=== PATIENT | female | born 1950 | race Caucasian/White ===

== ENCOUNTER 2020-09-18 14:22 | Emergency (ER) | payer MEDICARE ==
[2020-09-18 14:55] LABS: APPEARANCE,URINE CLOUDY (CLEAR); BILIRUBIN,URINE SMALL (NEGATIVE); COLOR,URINE ORANGE (YELLOW); GLUCOSE, URINE (UA) 100 mg/dL (NEGATIVE); KETONES,URINE 5 mg/dL (NEGATIVE); LEUKOCYTE ESTERASE ,URINE SMALL (NEGATIVE); NITRATE,URINE POSITIVE (NEGATIVE); OCCULT BLOOD,URINE LARGE (NEGATIVE); PROTEIN,URINE >=300 mg/dL (NEGATIVE)
[2020-09-18 15:19] LABS: BACTERIA,URINE Few /HPF (None Seen); MUCUS,URINE Rare LPF (None Seen); RBC,URINE 26-50 /HPF (0-1); SQUAMOUS EPITHELIAL CELL,UR Few /HPF (0-2); WBC,URINE 26-50 /HPF (0-1)
[2020-09-18] MEDS ORDERED: KETOROLAC TROMETHAMINE 30MG/ML ONE (15:32)
[2020-09-18] MEDS ORDERED: CEFTRIAXONE SODIUM 1 GM ONE (15:32)
[2020-09-18] MEDS ORDERED: PHENAZOPYRIDINE HCL 200 MG TABLET ONE (15:33)
[2020-09-18] MEDS ORDERED: ACETAMINOPHEN 325 MG TAB ONE (15:33)
[2020-09-18] MEDS ORDERED: LIDOCAINE HCL-MPF 1% 2ML VIAL ONE (15:34)
[2020-09-18 15:48] LABS: BASOPHILS % (AUTO) 0.7 % (0.0-5.0); EOSINOPHILS % (AUTO) 2.4 % (0.0-8.0); HEMATOCRIT 43.1 % (36-48); MEAN CORPUSCULAR HEMOGLOBIN 31.8 pg (27.0-33.0); MEAN CORPUSCULAR HGB CONC 34.8 g/dL (32.0-36.0); MEAN CORPUSCULAR VOLUME 91.5 fL (79-99); MONOCYTES % (AUTO) 8.7 % (3.0-13.0); NEUTROPHILS % (AUTO) 54.9 % (40.0-77.0); PLATELET COUNT (AUTO) 404 K/uL (130-400); RED BLOOD CELL COUNT(AUTO) 4.71 MIL/uL (4.00-5.50); RED CELL DISTRIBUTION WIDTH 13.3 % (11.0-15.5); WHITE BLOOD COUNT (AUTO) 10.6 K/uL (4.8-10.8)
[2020-09-18 16:02] LABS: CREATININE 1.1 mg/dL (0.5-1.5); POTASSIUM 3.8 mmol/L (3.5-5.1)
[2020-09-18 16:07] LABS: ALBUMIN 4.2 g/dL (3.5-5.0); BILIRUBIN,TOTAL 0.5 mg/dL (0.2-1.0); TOTAL PROTEIN, SERUM 8.1 g/dL (6.0-8.3)
== END 2020-09-18 17:11 | disposition home or self-care (01) ==
LOC: EDH 14:22
DX: N39.0 Urinary tract infection, site not specified (principal); I10 Essential (primary) hypertension; Z88.8 Allergy status to other drugs, medicaments and biological substances; Z72.0 Tobacco use; Z98.51 Tubal ligation status
CPT/HCPCS: 36415; 80053; 81001; 85025; 87088; 96372 ×2; 99284; J0696; J1885; J3490

== ENCOUNTER 2021-11-13 20:48 | Emergency (ER) | payer MEDICARE ==
[~2021-11-13] VITALS: Ht 152.4 cm; Wt 108.9 kg
[~2021-11-13 20:48] MED LIST: ATOR10 PO; DULO30CA52 PO; FAMO20TA8 PO; LEVO25CA4 PO; LOSA1TAB37 PO; NITR0.4T50 SL
[2021-11-13] MEDS ORDERED: 0.9%NACL 1000ML 1,000 ML IV ONE (21:30)
[2021-11-13 21:59] LABS: BASOPHILS % (AUTO) 0.5 % (0.0-5.0); EOSINOPHILS % (AUTO) 0.5 % (0.0-8.0); HEMATOCRIT 41.7 % (36-48); LYMPHOCYTES % (AUTO) 8.5 % (21.0-51.0); MEAN CORPUSCULAR HEMOGLOBIN 30.4 pg (27.0-33.0); MEAN CORPUSCULAR HGB CONC 33.6 g/dL (32.0-36.0); MEAN CORPUSCULAR VOLUME 90.5 fL (79-99); MONOCYTES % (AUTO) 6.7 % (3.0-13.0); NEUTROPHILS % (AUTO) 83.5 % (40.0-77.0); PLATELET COUNT (AUTO) 317 K/uL (130-400); RED BLOOD CELL COUNT(AUTO) 4.61 MIL/uL (4.00-5.50); RED CELL DISTRIBUTION WIDTH 13.4 % (11.0-15.5); WHITE BLOOD COUNT (AUTO) 10.2 K/uL (4.8-10.8)
[2021-11-13 22:19] LABS: CREATININE 0.8 mg/dL (0.5-1.5); POTASSIUM 3.7 mmol/L (3.5-5.1)
[2021-11-13 22:23] LABS: ALBUMIN 3.5 g/dL (3.5-5.0); BILIRUBIN,TOTAL 0.6 mg/dL (0.2-1.0); TOTAL PROTEIN, SERUM 7.2 g/dL (6.0-8.3)
[2021-11-13] MEDS ORDERED: ACETAMINOPHEN 500 MG TABLET ONE (23:00)
[2021-11-13] MEDS ORDERED: ACETAMINOPHEN 500 MG TABLET PO ONE (23:00)
[2021-11-13] MEDS ORDERED: DOXY100T2 PO (23:38)
[2021-11-13] MEDS ORDERED: BENZ-39 PO (23:38)
[2021-11-14] VITALS: BP 131/73
[2021-11-14] MEDS ORDERED: DOXYCYCLINE HYCLATE 100 MG TABLET PO SCH
[2021-11-14] MEDS ORDERED: BENZONATATE 100 MG CAPSULE PO ONE
== END 2021-11-14 00:37 | disposition home or self-care (01) ==
LOC: EDH 20:48
DX: J20.9 Acute bronchitis, unspecified (principal); E86.9 Volume depletion, unspecified; Z20.822 Contact with and (suspected) exposure to COVID-19; E03.9 Hypothyroidism, unspecified; E78.00 Pure hypercholesterolemia, unspecified; I10 Essential (primary) hypertension; M19.90 Unspecified osteoarthritis, unspecified site; Z79.899 Other long term (current) drug therapy; Z88.5 Allergy status to narcotic agent; Z90.49 Acquired absence of other specified parts of digestive tract
CPT/HCPCS: 36415; 71045; 80053; 84484; 85025; 87635; 87804 ×2; 93005; 96360; 99285; C9803; J7030

== ENCOUNTER 2022-11-21 08:51 | Emergency (ER) | payer OTHER, MEDICARE ==
[~2022-11-21] VITALS: Ht 152.4 cm; Wt 90.7 kg
[~2022-11-21 08:51] MED LIST changes: +BENZ-39 PO; +DOXY100T2 PO
[2022-11-21 08:55] VITALS: BP 125/81
[2022-11-21 09:26] LABS: BASOPHILS % (AUTO) 0.9 % (0.0-5.0); EOSINOPHILS % (AUTO) 2.8 % (0.0-8.0); HEMATOCRIT 42.7 % (36-48); LYMPHOCYTES % (AUTO) 31.3 % (21.0-51.0); MEAN CORPUSCULAR HEMOGLOBIN 31.6 pg (27.0-33.0); MEAN CORPUSCULAR HGB CONC 33.7 g/dL (32.0-36.0); MEAN CORPUSCULAR VOLUME 93.6 fL (79-99); MONOCYTES % (AUTO) 7.1 % (3.0-13.0); NEUTROPHILS % (AUTO) 57.7 % (40.0-77.0); PLATELET COUNT (AUTO) 351 K/uL (130-400); RED BLOOD CELL COUNT(AUTO) 4.56 MIL/uL (4.00-5.50); RED CELL DISTRIBUTION WIDTH 13.9 % (11.0-15.5); WHITE BLOOD COUNT (AUTO) 8.2 K/uL (4.8-10.8)
[2022-11-21 09:51] LABS: ALBUMIN 3.6 g/dL (3.5-5.0); CREATININE 0.7 mg/dL (0.5-1.5); POTASSIUM 3.5 mmol/L (3.5-5.1); TOTAL PROTEIN, SERUM 7.3 g/dL (6.0-8.3)
[2022-11-21 11:00] LABS: APPEARANCE,URINE CLOUDY (CLEAR); BILIRUBIN,URINE MODERATE mg/dL (NEGATIVE); COLOR,URINE BROWN (YELLOW); GLUCOSE, URINE (UA) NEGATIVE (NEGATIVE); KETONES,URINE 15 mg/dL (NEGATIVE); LEUKOCYTE ESTERASE ,URINE MODERATE Leu/uL (NEGATIVE); NITRATE,URINE POSITIVE (NEGATIVE); OCCULT BLOOD,URINE LARGE (NEGATIVE); PH,URINE 6.5 (5.0-8.0); PROTEIN,URINE >=300 mg/dL (NEGATIVE)
[2022-11-21 11:33] LABS: BACTERIA,URINE Many /HPF (None Seen); RBC,URINE TNTC /HPF (0-1)
[2022-11-21] MEDS ORDERED: CEPH500C2 PO (13:23)
== END 2022-11-21 15:01 | disposition home or self-care (01) ==
LOC: EDH 08:51
DX: N39.0 Urinary tract infection, site not specified (principal); I10 Essential (primary) hypertension; E78.00 Pure hypercholesterolemia, unspecified; Z88.5 Allergy status to narcotic agent; Z88.8 Allergy status to other drugs, medicaments and biological substances; Z79.899 Other long term (current) drug therapy; Z90.49 Acquired absence of other specified parts of digestive tract
CPT/HCPCS: 36415; 74176; 80053; 81001; 85025; 87088

== ENCOUNTER 2023-03-26 08:42 | Day surgery (SDC) | payer OTHER, MEDICARE ==
[2023-03-23 11:42] LABS: BASOPHILS # (AUTO) 0.09 K/uL (0.00-0.20); BASOPHILS % (AUTO) 0.9 % (0.0-5.0); EOSINOPHILS # (AUTO) 0.19 K/uL (0.00-0.70); EOSINOPHILS % (AUTO) 1.9 % (0.0-8.0); HEMATOCRIT 45.2 % (36-48); IMMATURE GRANULOCYTE ABSOLUTE 0.04 K/uL (0-1); LYMPHOCYTES # (AUTO) 3.3 K/uL (1.0-4.8); LYMPHOCYTES % (AUTO) 33.4 % (21.0-51.0); MEAN CORPUSCULAR HEMOGLOBIN 31.6 pg (27.0-33.0); MEAN CORPUSCULAR HGB CONC 33.2 g/dL (32.0-36.0); MEAN CORPUSCULAR VOLUME 95.4 fL (79-99); NEUTROPHILS # (AUTO) 5.3 K/uL (1.8-7.7); NEUTROPHILS % (AUTO) 53.4 % (40.0-77.0); PLATELET COUNT (AUTO) 375 K/uL (130-400); RED BLOOD CELL COUNT(AUTO) 4.74 MIL/uL (4.00-5.50); RED CELL DISTRIBUTION WIDTH 13.7 % (11.0-15.5); WHITE BLOOD COUNT (AUTO) 9.8 K/uL (4.8-10.8)
[2023-03-23 11:51] LABS: CREATININE 0.8 mg/dL (0.5-1.5); POTASSIUM 3.7 mmol/L (3.5-5.1)
[2023-03-23 11:58] VITALS: BP 123/77; PULSE 56; RESP 18
[2023-03-23 12:22] LABS: INR 1.03 (0.85-1.15); PROTHROMBIN TIME 11.9 SEC (9.6-11.6)
[2023-03-23 12:23] LABS: PARTIAL THROMBOPLASTIN TIME 28.6 SEC (26.3-35.5)
[~2023-03-26] VITALS: Ht 152.4 cm; Wt 98.9 kg
[2023-03-26] VITALS (18 sets, daily range): BP systolic 115–147; BP diastolic 53–77; PULSE 52–91; RESP 13–18
[~2023-03-26 08:42] MED LIST changes: -BENZ-39 PO; -DOXY100T2 PO; -DULO30CA52 PO; -FAMO20TA8 PO; -NITR0.4T50 SL
[2023-03-26] MEDS ORDERED: LACTATED RINGERS 1000ML 1,000 ML IV ONE (08:56)
[2023-03-26] MEDS ORDERED: CEFTRIAXONE 1G VIAL ONE (08:56)
[2023-03-26] MEDS ORDERED: PROPOFOL 10 MG/ML 20ML VIAL IV ONE (10:23)
[2023-03-26] MEDS ORDERED: FENTANYL CITRATE PF 50 MCG/1 ML 2ML VIAL ONE ×2 (10:23→14:02)
[2023-03-26] MEDS ORDERED: LIDOCAINE PF 100MG/5ML (2%) SYRINGE 5ML ONE (10:24)
[2023-03-26] MEDS ORDERED: ROCURONIUM 10MG/1ML SYR 10 MG/ML ML ONE (10:24)
[2023-03-26] MEDS ORDERED: CEFAZOLIN SODIUM 2 GM VIAL IVPB ONE (13:02)
[2023-03-26] MEDS ORDERED: DEXAMETHASONE SOD PHOSPHATE 10MG/ML 1ML VIAL ONE (13:04)
[2023-03-26] MEDS ORDERED: ONDANSETRON 4MG INJ ONE (13:04)
[2023-03-26] MEDS ORDERED: PHENYLEPHRINE HCL 10 MG/ML 1ML VIAL IV ONE (13:09)
[2023-03-26] MEDS ORDERED: NEOSTIGMINE 5MG/5ML SYR IV ONE (13:25)
[2023-03-26] MEDS ORDERED: GLYCOPYRROLATE 1 MG/5 ML SYRINGE ONE (13:25)
[2023-03-26] MEDS ORDERED: IPRATROPIUM/ALBUTEROL SULFATE 3 ML SOLUTION IH ONE ×2 (14:30→14:31)
[2023-03-26] MEDS ORDERED: MEPERIDINE-PF 25 MG/ML SYG ONE (14:39)
[2023-03-26] MEDS ORDERED: PHENAZOPYRIDINE HCL 200 MG TABLET ONE (14:58)
[2023-03-26] MEDS ORDERED: CITRIC ACID/SODIUM CITRATE 30 ML UDCUP ONE (15:13)
== END 2023-03-26 16:16 | disposition home or self-care (01) ==
LOC: DAH 08:42
PROVIDERS: ATTEND Urology
DX: R31.0 Gross hematuria (principal); C67.2 Malignant neoplasm of lateral wall of bladder; N30.21 Other chronic cystitis with hematuria; I10 Essential (primary) hypertension; F17.200 Nicotine dependence, unspecified, uncomplicated; E03.9 Hypothyroidism, unspecified; E66.9 Obesity, unspecified; M19.90 Unspecified osteoarthritis, unspecified site; Z88.8 Allergy status to other drugs, medicaments and biological substances; Z88.6 Allergy status to analgesic agent; Z98.51 Tubal ligation status; Z98.890 Other specified postprocedural states; Z90.49 Acquired absence of other specified parts of digestive tract
CPT/HCPCS: 80048; 85025; 85610; 85730; 36415; 93005 ×2; 52240; 88307; 94640; A6260; A4354; J7120; J3010 ×2; J3490; J1100; J2710; J2001; J0696; J2704; J2405; J2371; J0690; A4358; A4215; A4223; A4222; A4221; A4663; A4510; A5113; A4600; J2175

== ENCOUNTER 2023-04-20 11:20 | Day surgery (SDC) | payer OTHER, MEDICARE ==
[2023-04-18 13:37] LABS: BASOPHILS # (AUTO) 0.06 K/uL (0.00-0.20); BASOPHILS % (AUTO) 0.6 % (0.0-5.0); EOSINOPHILS # (AUTO) 0.18 K/uL (0.00-0.70); EOSINOPHILS % (AUTO) 1.8 % (0.0-8.0); HEMATOCRIT 43.9 % (36-48); IMMATURE GRANULOCYTE ABSOLUTE 0.03 K/uL (0-1); LYMPHOCYTES # (AUTO) 3.4 K/uL (1.0-4.8); LYMPHOCYTES % (AUTO) 34.3 % (21.0-51.0); MEAN CORPUSCULAR HEMOGLOBIN 31.6 pg (27.0-33.0); MEAN CORPUSCULAR HGB CONC 33.7 g/dL (32.0-36.0); MEAN CORPUSCULAR VOLUME 93.6 fL (79-99); MONOCYTES # (AUTO) 1.1 K/uL (0.1-1.0); MONOCYTES % (AUTO) 10.9 % (3.0-13.0); NEUTROPHILS # (AUTO) 5.1 K/uL (1.8-7.7); NEUTROPHILS % (AUTO) 52.1 % (40.0-77.0); PLATELET COUNT (AUTO) 390 K/uL (130-400); RED BLOOD CELL COUNT(AUTO) 4.69 MIL/uL (4.00-5.50); RED CELL DISTRIBUTION WIDTH 13.4 % (11.0-15.5); WHITE BLOOD COUNT (AUTO) 9.8 K/uL (4.8-10.8)
[2023-04-18 14:09] VITALS: BP 162/83; PULSE 90; RESP 18
[2023-04-20] VITALS (16 sets, daily range): BP systolic 125–143; BP diastolic 61–78; PULSE 65–85; RESP 15–17
[~2023-04-20] VITALS: Ht 152.4 cm; Wt 96.7 kg
[~2023-04-20 11:20] MED LIST changes: +ACET-2079 PO; +MITOMYCIN 40 MG SYR.W..INJ INJ SCH
[2023-04-20] MEDS ORDERED: LACTATED RINGERS 1000ML 1,000 ML IV ONE (11:41)
[2023-04-20] MEDS ORDERED: CEFTRIAXONE 1G VIAL ONE (11:41)
[2023-04-20 12:07] LABS: CREATININE 0.9 mg/dL (0.5-1.5)
[2023-04-20] MEDS ORDERED: LIDOCAINE PF 100MG/5ML (2%) SYRINGE 5ML ONE (18:06)
[2023-04-20] MEDS ORDERED: MIDAZOLAM HCL 1 MG/ML 2ML VIAL ONE (18:06)
[2023-04-20] MEDS ORDERED: ROCURONIUM 10MG/1ML SYR 10 MG/ML ML ONE (18:07)
[2023-04-20] MEDS ORDERED: PROPOFOL 10 MG/ML 20ML VIAL IV ONE (18:07)
[2023-04-20] MEDS ORDERED: FENTANYL CITRATE PF 50 MCG/1 ML 2ML VIAL ONE (18:54)
[2023-04-20] MEDS ORDERED: ONDANSETRON 4MG INJ ONE (19:14)
[2023-04-20] MEDS ORDERED: SUGAMMADEX SODIUM 200 MG/2 ML VIAL IV ONE (19:17)
[2023-04-20] MEDS ORDERED: PHENAZOPYRIDINE HCL 200 MG TABLET ONE (20:33)
== END 2023-04-20 21:05 | disposition home or self-care (01) ==
LOC: DAH 11:20
PROVIDERS: ATTEND Urology
DX: N30.20 Other chronic cystitis without hematuria (principal); N30.00 Acute cystitis without hematuria; I10 Essential (primary) hypertension; E03.9 Hypothyroidism, unspecified; F17.200 Nicotine dependence, unspecified, uncomplicated; Z88.6 Allergy status to analgesic agent; Z88.8 Allergy status to other drugs, medicaments and biological substances; Z79.890 Hormone replacement therapy
CPT/HCPCS: 93005; 85025; 36415 ×2; 52234; 80048; 88305; 51720; A6260; J9280; A4663; J7120 ×2; A4354; J3010; J2001; J0696; J2250; J2704; J2405; A4358; A4215; A4223; A4222; A4221; A5113; A4600; A4510; J3490

== ENCOUNTER 2023-08-03 12:10 | Emergency (ER) | payer OTHER, MEDICARE ==
[~2023-08-03] VITALS: Ht 152.4 cm; Wt 113.4 kg
[~2023-08-03 12:10] MED LIST changes: -MITOMYCIN 40 MG SYR.W..INJ INJ SCH
[2023-08-03 12:43] VITALS: PULSE 105; RESP 18
[2023-08-03] MEDS: IPRATROPIUM/ALBUTEROL SULFATE 3 ML SOLUTION IH ONE ×3 (12:43→13:42)
[2023-08-03 12:51] LABS: BASOPHILS # (AUTO) 0.12 K/uL (0.00-0.20); BASOPHILS % (AUTO) 1.1 % (0.0-5.0); EOSINOPHILS # (AUTO) 0.42 K/uL (0.00-0.70); EOSINOPHILS % (AUTO) 3.7 % (0.0-8.0); HEMATOCRIT 44.9 % (36-48); IMMATURE GRANULOCYTE ABSOLUTE 0.05 K/uL (0-1); LYMPHOCYTES # (AUTO) 3.4 K/uL (1.0-4.8); LYMPHOCYTES % (AUTO) 30.1 % (21.0-51.0); MEAN CORPUSCULAR HEMOGLOBIN 31.5 pg (27.0-33.0); MEAN CORPUSCULAR HGB CONC 34.1 g/dL (32.0-36.0); MEAN CORPUSCULAR VOLUME 92.6 fL (79-99); MONOCYTES # (AUTO) 1.1 K/uL (0.1-1.0); MONOCYTES % (AUTO) 9.5 % (3.0-13.0); NEUTROPHILS # (AUTO) 6.2 K/uL (1.8-7.7); NEUTROPHILS % (AUTO) 55.2 % (40.0-77.0); PLATELET COUNT (AUTO) 415 K/uL (130-400); RED BLOOD CELL COUNT(AUTO) 4.85 MIL/uL (4.00-5.50); RED CELL DISTRIBUTION WIDTH 13.2 % (11.0-15.5); WHITE BLOOD COUNT (AUTO) 11.3 K/uL (4.8-10.8)
[2023-08-03 12:56] LABS: CREATININE 0.9 mg/dL (0.5-1.5); POTASSIUM 3.5 mmol/L (3.5-5.1)
[2023-08-03 13:01] LABS: ALBUMIN 3.8 g/dL (3.5-5.0); BILIRUBIN,TOTAL 0.6 mg/dL (0.2-1.0); TOTAL PROTEIN, SERUM 7.8 g/dL (6.0-8.3)
[2023-08-03 13:18] LABS: B-TYPE NATRIURETIC PEPTIDE 18 pg/mL (0-100)
[2023-08-03 13:30] VITALS: BP 144/82; O2SAT 95
[2023-08-03 13:34] LABS: SARS-CoV-2, RNA, NAAT NEGATIVE SARS CoV-2 (NEGATIVE)
[2023-08-03 13:37] LABS: INFLUENZA TYPE A Negative For Type A (NEGATIVE); INFLUENZA TYPE B Negative For Type B (NEGATIVE)
[2023-08-03 13:42] VITALS: PULSE 105; RESP 18
[2023-08-03] MEDS ORDERED: PRED20TA3 PO (15:58)
[2023-08-03] MEDS ORDERED: AZIT250T9 PO (15:58)
[2023-08-03] MEDS ORDERED: IPRA3AMP24 IH (15:58)
== END 2023-08-03 16:26 | disposition home or self-care (01) ==
LOC: EDH 12:10
DX: J44.1 Chronic obstructive pulmonary disease with (acute) exacerbation (principal); J20.9 Acute bronchitis, unspecified; I10 Essential (primary) hypertension; E78.00 Pure hypercholesterolemia, unspecified; E03.9 Hypothyroidism, unspecified; Z20.822 Contact with and (suspected) exposure to COVID-19; Z79.899 Other long term (current) drug therapy; Z98.890 Other specified postprocedural states; Z88.5 Allergy status to narcotic agent; Z88.8 Allergy status to other drugs, medicaments and biological substances
CPT/HCPCS: 36415; 71045; 80053; 83735; 83880; 84484; 85025; 87635; 87804; 93005; 94640

== ENCOUNTER 2025-01-28 11:01 | Emergency (ER) | payer OTHER, MEDICAID ==
[~2025-01-28] VITALS: Ht 152.4 cm; Wt 108.4 kg
[~2025-01-28 11:01] MED LIST changes: -ACET-2079 PO; +ALBU6.7H14 IH; +AZIT500T4 PO; +BENZ200C53 PO; +CEFD300C3 PO; -LEVO25CA4 PO; +LEVO25CA5 PO; +METH4TAB3 PO
--- NOTE | 2025-01-28 11:10 | ERN ---
ED Note History of Present Illness Stated Complaint: RT SHOULDER PAIN Chief Complaint: Shoulder Injury/Pain Time Seen by MD: 11:04 Dictation: PATIENT IS A 74-YEAR-OLD FEMALE COMING IN TODAY WITH COMPLAINTS OF NON TRAUMA RIGHT POSTERIOR SHOULDER PAIN, STATES IT IS HER MUSCLE BECAUSE THE BONES ON HER ONSET TWO DAYS PRIOR TO ARRIVAL. SHE STATES SHE WOKE UP WITH THE PAIN. DENIES CHEST PAIN NO BACK PAIN NO SOB NO ARM PAIN. SHE STATES SHE HAS NOT HAD ANY TRAUMA Allergies: Coded Allergies: fluoxetine HCl (Unverified Allergy, Unknown, 09/18/20) Home Meds Active Scripts Albuterol Sulfate (Proventil Hfa) 90 Mcg Hfa.aer.ad, 6.7 GM IH QID PRN for SHORTNESS OF BREATH/WHEEZING for 30 Days, #1 INHALER Prov:LIDIA CAVAZOS SWITCHBOARD OPERATOR ASSISTANT 08/31/23 Cefdinir (Cefdinir) 300 Mg Capsule, 300 MG PO BID for 5 Days, #10 CAP Prov:LIDIA CAVAZOS SWITCHBOARD OPERATOR ASSISTANT 08/31/23 Benzonatate (Benzonatate) 200 Mg Capsule, 200 MG PO Q8H PRN for COUGH, #30 CAP Prov:LIDIA CAVAZOS SWITCHBOARD OPERATOR ASSISTANT 08/31/23 Methylprednisolone (Medrol) 4 Mg Tab.ds.pk, 4 MG PO DAILY for 6 Days, #21 MG Prov:LIDIA CAVAZOS SWITCHBOARD OPERATOR ASSISTANT 08/31/23 Azithromycin (Azithromycin) 500 Mg Tablet, 500 MG PO DAILY for 3 Days, #3 TAB Prov:LIDIA CAVAZOS SWITCHBOARD OPERATOR ASSISTANT 08/31/23 Reported Medications Atorvastatin Calcium (LIPITOR) 20 Mg Tab, 20 MG PO DAILY, TAB 08/30/21 Levothyroxine Sodium (Levothyroxine) 25 Mcg Capsule, 25 MCG PO DAILY, CAP 08/30/21 Losartan/Hydrochlorothiazide (Losartan-Hctz 50-12.5 mg Tab) 50 Mg-12.5 Mg Tablet, 1 EACH PO DAILY, TAB 08/30/21 Past Medical History Past Medical History: Asthma, COPD, High Cholesterol, Hypertension, Hypothyroid Surgical History: Cholecystectomy, Other Surgical History Other: CATARAS, CARPAL TUNNEL Family History: Negative Social History: Negative, Other History: Not Applicable : 2 Para: 2 Aborts: 0 RN Note Reviewed/Agreed w/PFSH: Yes Review of System Dictation CONSTITUTIONAL: NEGATIVE EXCEPT FOR HPI HEAD/FACE: NEGATIVE EXCEPT FOR HPI EENT: NEGATIVE EXCEPT FOR HPI RESPIRATORY: NEGATIVE EXCEPT FOR HPI GASTROINTESTINAL/ABDOMINAL: NEGATIVE EXCEPT FOR HPI GENITOURINARY: NEGATIVE EXCEPT FOR HPI MUSCULOSKELETAL: NEGATIVE EXCEPT FOR HPI RIGHT POSTERIOR SHOULDER PAIN INTEGUMENTARY: NEGATIVE EXCEPT FOR HPI NEUROLOGICAL/PSYCH: NEGATIVE EXCEPT FOR HPI HEMATOLOGIC/LYMPHATIC: NEGATIVE EXCEPT FOR HPI ALL SYSTEMS NEGATIVE, EXCEPT NOTED ABOVE. 13 POINT REVIEW OF SYSTEMS ASSESSED AND ALL NEGATIVE EXCEPT FOR ABOVE. Initial Vital Sign VS Vital Signs Date Time Temp Pulse Resp B/P (MAP) Pulse Ox O2 Delivery O2 Flow Rate FiO2 01/28/25 11:07 98.8 88 18 153/81 97 Room Air 0 01/28/25 11:14 21 Physical Exam Dictation VITAL SIGNS REVIEWED GENERAL APPEARANCE: ALERT, ORIENTED X 3, SEVERE ACUTE DISTRESS, WELL DEVELOPED, NOURISHED. MORBID OBESITY HEAD AND FACE: NON-TRAUMATIC. EYES: PERRL, PINK CONJUNCTIVAS, EYELID NO TRAUMA, ANTERIOR CHAMBER WITH ARCUS SENILIS. EARS: PINNAS INTACT AND NO SIGNS OF TRAUMA OR ERYTHEMA EAR CANALS CLEAR AND NO DISCHARGE TM NO ERYTHEMA NOSE: NO DISCHARGE, NO BLEEDING. OROPHARYNX: MOUTH NORMAL, TONGUE PINK, PHARYNX CLEAR,NO ERYTHEMA, TONSILS NO EXUDATES, NO ABSCESSES NOTED, MUCOUS MEMBRANE MOIST NECK: SUPPLE, NON-TENDER, NO THYROMEGALY, NO MASSES, NO JVD, NO BRUITS BREAST:DEFERRED CHEST:NO TENDERNESS, NO CREPITUS, NO PARADOXICAL MOVEMENT, NO RETRACTIONS LUNGS:CLEAR, WELL-VENTILATED, SYMMETRIC, NO RALES, NO WHEEZING, NO RHONCHI, NO STRIDOR, GOOD BREATH SOUNDS BILATERALLY HEART: REGULAR RATE, REGULAR RHYTHM, NO MURMUR, NO GALLOPS VASCULAR: NO PERIPHERAL EDEMA, ABDOMEN: SOFT, POSITIVE BOWEL SOUNDS, NONDISTENDED, NO GUARDING, NONTENDER, NO REBOUND, NO MASSES NO HEPATOMEGALY, NO SPLENOMEGALY, NO CARRILLO'S SIGN, NO HERNIAS. RECTAL: DEFERRED GENITAL: DEFERRED NEUROLOGICAL: NORMAL SPEE RIGHT POSTERIOR SHOULDER WITH TENDERNESS SWELLING. SKIN: COLOR PINK, DRY, NO TURGOR, NO RASH, NO LACERATIONS, NO ABRASIONS, NO CONTUSIONS. LYMPHATIC: DEFERRED Results (Laboratory/Radiology) Laboratory/Radiology RIGHT SHOULDER X-RAY NEGATIVE EXCEPT FOR DEGENERATIVE CHANGES Labs Reviewed?: Yes ED Course ED Course Orders Procedure Category Date Status Time Shoulder Comp 2+Vws Rt RAD 01/28/25 Taken 11:05 Dexamethasone 4mg/Ml PHA 01/28/25 Complete 1ml Vial (Dexametha 11:30 Cyclobenzaprine Hcl PHA 01/28/25 Complete (Cyclobenzaprine Hcl 11:30 Ketorolac PHA 01/28/25 Complete Tromethamine 30mg/Ml 11:30 Current Medications Medications (Trade) Dose Ordered Sig/Jonn Route PRN Reason Start Time Stop Time Status Last Admin Dose Admin Cyclobenzaprine HCl (Cyclobenzaprine HCl) 10 mg ONCE ONCE PO 01/28/25 11:30 01/28/25 11:31 DC 01/28/25 11:36 Dexamethasone Sodium Phosphate (dexaMETHasone 4MG/ML 1ML VIAL) 8 mg ONCE ONCE IM 01/28/25 11:30 01/28/25 11:31 DC 01/28/25 11:37 Ketorolac Tromethamine (toRADol) 30 mg ONCE ONCE IVP 01/28/25 11:30 01/28/25 11:31 DC 01/28/25 11:37 Vital Signs Date Time Temp Pulse Resp B/P (MAP) Pulse Ox O2 Delivery O2 Flow Rate FiO2 01/28/25 11:14 98.8 88 18 153/81 97 Room Air* 0 21 01/28/25 11:07 98.8 88 18 153/81 97 Room Air 0 1210/PATIENT STATES PAIN IS REDUCED DOWN TO 5/10. WE WILL BE REFERRED TO DR. SULEIMAN TEJADA [facility]THOPED[facility] SURGERY. SHE WILL BE PRESCRIBED MOTRIN FLEXERIL AND RICE INSTRUCTIONS Medical Decision Making MDM MEDICAL DECISION-MAKING BASED ON X-RAY OF RIGHT SHOULDER AND PAIN MANAGEMENT EMPIRICALLY DEGENERATIVE CHANGES TO RIGHT SHOULDER ONLY NO FRACTURES PATIENT DISCHARGED WITH IBUPROFEN AND FLEXERIL GIVEN RICE INSTRUCTIONS INFORMATION REFERRED TO DR. SULEIMAN TEJADA DX & DISP Disposition: Discharge Departure Impression: Primary Impression: Right shoulder strain Condition: Stable Scripts Cyclobenzaprine HCl (Cyclobenzaprine HCl) 10 Mg Tablet 1 TAB PO TID for muscle spasms for 10 Days, #30 TAB 0 Refills Prov: POLINA YOUSSEF SWITCHBOARD OPERATOR ASSISTANT 01/28/25 Ibuprofen (Ibuprofen 800 mg Tab) 800 Mg Tab 800 MG PO Q8H PRN for fever or pain, #30 TAB 0 Refills Prov: POLINA YOUSSEF SWITCHBOARD OPERATOR ASSISTANT 01/28/25 Additional Instructions: FOLLOW-UP WITH PRIMARY CARE PROVIDER IN 1 TO 2 DAYS. TAKE MEDICATIONS DIRECTED HERE IN THE EMERGENCY ROOM. OKAY TO CONTINUE HOME MEDICATIONS UNLESS OTHERWISE DISCUSSED DURING YOUR VISIT IN THE EMERGENCY ROOM TODAY. RETURN TO YOUR NEAREST EMERGENCY ROOM IF SYMPTOMS WORSEN OR IF THERE IS NO IMPROVEMENT. CALL 911 IF YOU NEED IMMEDIATE ASSISTANCE. TAKE TYLENOL OR MOTRIN [id number] NEEDED AND IF NO CONTRAINDICATIONS ARE PRESENT. INCREASE ORAL HYDRATION. A WOUND CULTURE OR URINE CULTURE WAS ORDERED HERE IN THE EMERGENCY ROOM DEPARTMENT PLEASE FOLLOW-UP WITH PRIMARY CARE PROVIDER AND ADVISE THEM TO GET REPEAT PORTS FROM OUR FACILITY. IF YOU HAD ANY GRISEL WRAP/SPLINTS THAT WERE APPLIED HERE, PLEASE DO NOT REMOVE THEM UNTIL YOU SEE YOUR PRIMARY CARE OR SPECIALTY. WARM COMPRESSES TO RIGHT SHOULDER THREE TO 4 TIMES A DAY. TAKE IBUPROFEN AND F LEXERIL EVERY 8 HOURS WITH FOOD FOR THE NEXT THREE DAYS. CALL ORTHOPEDIC SURGEON FOR APPOINTMENT IN THE NEXT 1-2 DAYS, MAKING AP POINTMENT. Referrals: YOCASTA RICHARD (PCP) SULEIMAN TEJADA DO Time of Disposition: 12:11 I have reviewed the case, and I agree with, Diagnosis and Plan POLINA YOUSSEF NP Jan 28, 2025 11:10
[2025-01-28 11:14] VITALS: BP 153/81; PULSE 88; RESP 18; TEMP 98.7; O2SAT 97
[2025-01-28] MEDS: CYCLOBENZAPRINE HCL 10 MG TABLET PO ONE (11:36)
[2025-01-28] MEDS ORDERED: CYCL-309 PO (12:12)
[2025-01-28] MEDS ORDERED: IBUP-2077 PO (12:12)
--- NOTE | 2025-01-28 12:28 | HMCIMG ---
EXAM: CR right Shoulder, 2 View. CLINICAL HISTORY: NON TRAUMA RIGHT POSTERIOR SHOULDER PAIN TWO DAYS COMPARISON: None provided. FINDINGS: BONES: No acute fracture or aggressive appearing osseous lesion. JOINTS: No dislocation. Mild acromioclavicular and glenohumeral joint osteoarthritis. SOFT TISSUES: The soft tissues are unremarkable. IMPRESSION: 1. No acute findings. /[place]
== END 2025-01-28 12:14 | disposition home or self-care (01) ==
LOC: EDH 11:01
DX: S46.911A Strain of unspecified muscle, fascia and tendon at shoulder and upper arm level, right arm, initial encounter (principal); E03.9 Hypothyroidism, unspecified; E78.00 Pure hypercholesterolemia, unspecified; I10 Essential (primary) hypertension; J44.89 Other specified chronic obstructive pulmonary disease; Z79.52 Long term (current) use of systemic steroids; Z79.890 Hormone replacement therapy; Z79.899 Other long term (current) drug therapy; Z90.49 Acquired absence of other specified parts of digestive tract; X58.XXXA Exposure to other specified factors, initial encounter; Y93.89 Activity, other specified; Y92.89 Other specified places as the place of occurrence of the external cause; Y99.8 Other external cause status
CPT/HCPCS: 99284; 96374; 73030; 96372; J1885; J1100

== ENCOUNTER 2025-03-11 10:28 | Emergency (ER) | payer OTHER, MEDICAID ==
[~2025-03-11] VITALS: Ht 152.4 cm; Wt 112.9 kg
[~2025-03-11 10:28] MED LIST changes: +CYCL-309 PO; +IBUP-2077 PO
--- NOTE | 2025-03-11 11:21 | NUR ---
assumed care at this time pt moved from [facility]
--- NOTE | 2025-03-11 11:55 | EKG ---
[facility] Test Date: 2025-03-11 Test Time: 11:46:57 Pat Name: MAREN DUGGAN Department: ED Room: Gender: F Hand Hide Stretcher: [id number] : 1950 Requested By: TATIANA BHAKTA Order Number: [id number] Reading MD: Conner Malone Measurements Intervals Ideal Rate: 99 P: 72 TN: 210 QRS: 56 QRSD: 95 T: 71 QT: 370 QTc: 476 Interpretive Statements Sinus rhythm Borderline prolonged TN interval Compared to ECG 08/28/2023 13:32:34 Sinus tachycardia no longer present Electronically Signed On 03-11-2025 14:44:07 CDT by Conner Malone Please click the below link to view image of tracing.
[2025-03-11] MEDS: TRIAMCINOLONE ACETONIDE 40 MG/ML 1ML VIAL IM ONE (12:03)
[2025-03-11] MEDS: ORPHENADRINE 60MG/2ML IM ONE (12:03)
--- NOTE | 2025-03-11 12:05 | ERN ---
General Chief Complaint: Back Pain or Injury Stated Complaint: BACK PAIN Time Seen by MD: 10:30 Source: patient History of Present Illness Initial Comments This patient is a 75-year-old female who presented with complaint of right shoulder pain. The pain is more prominent on the posterolateral aspect of the shoulder joint. There is no associated weakness or numbness. Patient denies fever or chills. Patient was seen in the ED for similar complaint a few weeks ago. X-ray at that time showed degenerative changes in the right shoulder. As per patient, she did not follow up with the surgeon on discharge earlier as she did not want to undergo any surgery. Timing/Duration: 24 hours Allergies: Coded Allergies: fluoxetine HCl (Unverified Allergy, Unknown, 09/18/20) Home Meds Active Scripts Cyclobenzaprine HCl (Cyclobenzaprine HCl) 10 Mg Tablet, 1 TAB PO TID for muscle spasms for 10 Days, #30 TAB 0 Refills Prov:POLINA YOUSSEF NP 01/28/25 Ibuprofen (Ibuprofen 800 mg Tab) 800 Mg Tab, 800 MG PO Q8H PRN for fever or pain, #30 TAB 0 Refills Prov:POLINA YOUSSEF NP 01/28/25 Albuterol Sulfate (Proventil Hfa) 90 Mcg Hfa.aer.ad, 6.7 GM IH QID PRN for SHOR TNESS OF BREATH/WHEEZING for 30 Days, #1 INHALER Prov:LIDIA CAVAZOS DIRECTOR WORK 08/31/23 Cefdinir (Cefdinir) 300 Mg Capsule, 300 MG PO BID for 5 Days, #10 CAP Prov:LIDIA CAVAZOS NP 08/31/23 Benzonatate (Benzonatate) 200 Mg Capsule, 200 MG PO Q8H PRN for COUGH, #30 CAP Prov:LIDIA CAVAZOS NP 08/31/23 Methylprednisolone (Medrol) 4 Mg Tab.ds.pk, 4 MG PO DAILY for 6 Days, #21 MG Prov:LIDIA CAVAZOS NP 08/31/23 Azithromycin (Azithromycin) 500 Mg Tablet, 500 MG PO DAILY for 3 Days, #3 TAB Prov:LIDIA CAVAZOS NP 08/31/23 Reported Medications Atorvastatin Calcium (LIPITOR) 20 Mg Tab, 20 MG PO DAILY, TAB 08/30/21 Levothyroxine Sodium (Levothyroxine) 25 Mcg Capsule, 25 MCG PO DAILY, CAP 08/30/21 Losartan/Hydrochlorothiazide (Losartan-Hctz 50-12.5 mg Tab) 50 Mg-12.5 Mg Tablet, 1 EACH PO DAILY, TAB 08/30/21 Past Medical History Past Medical History: Cancer, COPD, Diabetes-Type II, High Cholesterol, Hypertension, Hypothyroid Past Surgical History: Cholecystectomy, BTL Surgical History Other: BILAT HAND SX, ORALSX, BLADDER SX, CATATRACTS Family History Family History: Negative Social History Social History: Negative, Other Female( History) History: Not Applicable : 2 Para: 2 Aborts: 0 Constitutional: (-) chills, (-) diaphoresis, (-) fever, (-) malaise, (-) weakness, (-) other documentation EENTM: (-) eye pain, (-) blurred vision, (-) tearing, (-) double vision, (-) ear pain, (-) ear discharge, (-) nose pain, (-) nose congestion, (-) throat pain, (-) Throat swelling, (-) mouth pain, (-) tooth pain, (-) mouth swelling, (-) other documentation Respiratory: (-) cough, (-) orthopnea, (-) short of breath, (-) stridor, (-) wheezing, (-) other documentation Cardiovascular: (-) chest pain, (-) edema, (-) palpitations, (-) syncope, (-) dyspnea on exertion, (-) other documentation Musculoskeletal: (+) back pain, (+) joint pain, (+) muscle pain Skin: (-) laceration, (-) contusion, (-) abrasion, (-) abscess, (-) rash, (-) change in color, (-) change in hair, (-) change in nails, (-) diaphoresis, (-) dryness, (-) other documentation Neuro: (-) altered mental status, (-) headache, (-) syncope, (-) paralysis, (-) numbness, (-) seizure, (-) pre-existing deficit, (-) tremors, (-) weakness, (-) dizziness, (-) slurred speech, (-) vertigo, (-) other documentation Physical Exam General Appearance: (+) no apparent distress Orientation: (+) alert, (+) oriented x 3 Head/Face Trauma: No Ear, Nose, Throat: (+) hearing grossly normal, (+) normal ENT inspection, (+) moist mucous membraine, (+) normal pharynx; (-) normal TM, (-) abnormal TM, (-) pharyngeal erythema, (-) sinus drainange, (-) sinus pain, (-) tonsillar exudate, (-) tonsillar swelling, (-) nasal drip, (-) nasal congestion, (-) hearing decreased, (-) dry mucous membraine, (-) other documentation Neck: (+) normal inspection, (+) supple, (+) full range of motion; (-) no JVD, (-) non-tender, (-) no bruit, (-) tender, (-) limited range of motion, (-) tender lateral, (-) tender midline, (-) thyromegaly, (-) lymphadenopathy, (-) masses, (-) carotid bruit, (-) other documentaion Respiratory: (+) chest non-tender, (+) lungs clear, (+) well ventilated; (-) decreased breath sounds, (-) retractions, (-) abnormal breath sound, (-) crackles, (-) plerual rub, (-) rales, (-) rhonchi, (-) stridor, (-) wheezing, (- ) other documentation Heart: (+) regular; (-) murmur, (-) irregular, (-) bradycardia, (-) tachycardia, (-) systolic murmur, (-) diastolic murmur, (-) extra beats, (-) friction rub, (-) gallop/S3, (-) gallop/S4, (-) other documentation Gastrointestinal: (+) soft, (+) non-tender; (-) no organomegaly, (-) bowel sound present, (-) distended, (-) tender, (-) abnormal bowel sounds, (-) bowel sound absent, (-) rebound, (-) perez's sign, (-) guarding, (-) hernia, (-) mass, (-) pulsatile mass, (-) CVA tenderness, (-) hepatomegaly, (-) spleenomegaly, (-) other documentation, (-) McBerney's, (-) other documentation Extremities Comment pain with movement of right shoulder joint. Neurologic/Psychiatric: (+) normal speech, (+) no motor defecits, (+) no sen marcelino deficits; (-) construction engineer II-XII nml as tested, (-) normal gait, (-) normal mood/affect, (-) abnormal cerebellar tests, (-) abnormal gait, (-) aphasia, (-) facial droop, (-) other documentation Skin: (+) normal color; (-) warm/dry, (-) cyanosis, (-) diaphoresis, (-) jaundice, (-) mottled, (-) pallor, (-) rash Results EKG/XRAY/US/CT/MRI EKG Comment 03/11/2025 11:46:57 Rate 99: Sinus rhythm [place] 210, QT 370 [place] P 72, QRS 56, T 71. MDM MDM: DIFFERENTIAL DIAGNOSIS: SHOULDER STRAIN, MUSCLE STRAIN, CHRONIC SHOULDER STRAIN RATIONALE: TESTS CONSIDERED AND ORDERED SECONDARY TO SHARED DECISION MAKING INCLUDE: PREVIOUS OUTSIDE RECORDS REVIEWED: OLD ER VISITS. RISK OF COMPLICATION AND/OR MORBIDITY OR MORTALITY OF PATIENT MANAGEMENT: NONE MEDICATIONS-PER MEDICATION RECONCILIATION NEED FOR HOSPITALIZATION: PATIENT DOES NOT MEET CRITERIA FOR HOSPITALIZATION. NEED FOR EMERGENCY MAJOR/MINOR SURGERY: NO THERE ARE NO SOCIAL CONCERNS WITH THIS PATIENT. PATIENT IS A 75-YEAR-OLD FEMALE COMING IN COMPLAINING OF RIGHT SHOULDER PAIN. PER PATIENT SHE HAS BEEN HAVING THIS RIGHT SHOULDER PAIN FOR SEVERAL MONTHS. PATIENT IS PENDING EVALUATION BY ORTHO. ON PHYSICAL EXAM THERE IS TENDERNESS TO PALPATION OF THE RIGHT THE RIGHT HIP HE HAS BEEN SHUNT. PATIENT RECEIVED ANTI- INFLAMMATORIES ANTISPASMODICS STATES HER PAIN HAS SUBSIDED. PATIENT WILL BE DISCHARGED IN STABLE CONDITION. PATIENT WAS INSTRUCTED PROPER FOLLOW UP WITH SPORT PSYCHOLOGIST. ED Course Orders Procedure Category Date Status Time Triamcinolone Acet PHA 03/11/25 Complete 40mg/Ml 1ml (Kenalog 11:30 Orphenadrine Citrate PHA 03/11/25 Complete (Norflex) 11:30 12 Lead Ekg Tracing- EKG 03/11/25 Complete Technical 11:37 Sling MALAIKA 03/11/25 Verified 12:34 Current Medications Medications (Trade) Dose Ordered Sig/Jonn Route PRN Reason Start Time Stop Time Status Last Admin Dose Admin Orphenadrine Citrate (Norflex) 60 mg ONCE ONCE IM 03/11/25 11:30 03/11/25 11:34 DC 03/11/25 12:03 Triamcinolone Acetonide (Kenalog 40) 40 mg ONCE ONCE IM 03/11/25 11:30 03/11/25 11:34 DC 03/11/25 12:03 Vital Signs Date Time Temp Pulse Resp B/P (MAP) Pulse Ox O2 Delivery O2 Flow Rate FiO2 03/11/25 10:29 97.9 95 18 139/64 100 Room Air 0 DX & DISP Disposition: Discharge Departure Impression: Primary Impression: Right shoulder strain Condition: Stable Scripts Diclofenac Sodium (Voltaren Arthritis Pain) 1 % Gel..gram. 5 GM TP BID for 7 Days, #1 TUBE Prov: TATIANA BHAKTA MD 03/11/25 Additional Instructions: FOLLOW-UP WITH PRIMARY CARE PROVIDER IN 1 TO 2 DAYS. TAKE MEDICATIONS DIRE CTED HERE IN THE EMERGENCY ROOM. OKAY TO CONTINUE HOME MEDICATIONS UNLESS OTHERWISE DISCUSSED DURING YOUR VISIT IN THE EMERGENCY ROOM TODAY. RETURN TO YOUR NEAREST EMERGENCY ROOM IF SYMPTOMS WORSEN OR IF THERE IS NO IMPROVEMENT. CALL 911 IF YOU NEED IMMEDIATE ASSISTANCE. TAKE TYLENOL [id number] NEEDED AND IF NO CONTRAINDICATIONS ARE PRESENT. INCREASE ORAL HYDRATION. A WOUND CULTURE OR URINE CULTURE WAS ORDERED HERE IN THE EMERGENCY ROOM DEPARTMENT PLEASE FOLLOW-UP WITH PRIMARY CARE PROVIDER AND ADVISE THEM TO GET REPORTS FROM OUR FACILITY. IF YOU HAD ANY GRISEL WRAP/SPLINTS THAT WERE APPLIED HERE, PLEASE DO NOT REMOVE THEM UNTIL YOU SEE YOUR PRIMARY CARE OR SPECIALTY. REFERRALS: Referrals: SANDRITA CARDENAS M.D. (PCP) Time of Disposition: 12:36 AGNES ALCAZAR MD Mar 11, 2025 12:05 TATIANA BHAKTA MD Mar 11, 2025 12:37
[2025-03-11] MEDS ORDERED: DICL20GE TP (12:36)
[2025-03-11 12:48] VITALS: BP 131/65; PULSE 90; RESP 18; TEMP 97.9; O2SAT 100
== END 2025-03-11 12:59 | disposition home or self-care (01) ==
LOC: EDH 10:28
DX: S46.911A Strain of unspecified muscle, fascia and tendon at shoulder and upper arm level, right arm, initial encounter (principal); E03.9 Hypothyroidism, unspecified; E11.9 Type 2 diabetes mellitus without complications; E78.00 Pure hypercholesterolemia, unspecified; I10 Essential (primary) hypertension; J44.9 Chronic obstructive pulmonary disease, unspecified; Z79.52 Long term (current) use of systemic steroids; Z79.890 Hormone replacement therapy; Z79.899 Other long term (current) drug therapy; Z90.49 Acquired absence of other specified parts of digestive tract; Z98.51 Tubal ligation status
CPT/HCPCS: 99284; 96372 ×2; 93005; J3301; J2360